=== PATIENT | male | born 2000 | race Hispanic/Latino ===

== ENCOUNTER 2024-11-03 20:19 | Emergency (ER) | payer OTHER ==
[~2024-11-03] VITALS: Ht 172.7 cm; Wt 76.4 kg
[2024-11-04 00:35] VITALS: BP 128/84; TEMP 98; O2SAT 100
[2024-11-04] MEDS ORDERED: AMOX875T2 PO (01:02)
[2024-11-04] MEDS: AUGMENTIN 875 MG TAB PO ONE (01:47)
[2024-11-04] MEDS: NEOSPORIN TOP OINT 15 GM TOP ONE (01:49)
[2024-11-04] MEDS ORDERED: NEOSPORIN TOP OINT 15 GM TOP ONE (08:30)
== END 2024-11-04 01:57 | disposition home or self-care (01) ==
LOC: M ED 20:19
DX: S80.921A Unspecified superficial injury of right lower leg, initial encounter (principal); W54.0XXA Bitten by dog, initial encounter; Y92.830 Public park as the place of occurrence of the external cause; Y93.9 Activity, unspecified; Y99.9 Unspecified external cause status; Z79.2 Long term (current) use of antibiotics